=== PATIENT | male | born 1985 | race African-American/Black ===

== ENCOUNTER 2016-12-30 22:13 | Emergency (ER) | payer BC ==
[~2016-12-30 22:13] MED LIST: ABAC1TAB3 PO; NAPR500 PO; NORC7.5T PO
[2016-12-30 22:15] VITALS: BP 156/86; PULSE 63; RESP 16; TEMP 98.7; O2SAT 98
[2016-12-30] MEDS ORDERED: ABAC1TAB3 PO (22:40)
[2016-12-30] MEDS ORDERED: BACT800T5 PO (22:50)
--- NOTE | 2016-12-30 22:53 | PD ---
HPI Chief Complaint: Cold / Flu Symptoms Time Seen by Provider: 22:51 Travel History International Travel<30 days: No Contact w/Intl Traveler<30days: No Traveled to known affect area: No History of Present Illness HPI 31-year-old black male with a history of HIV and neurofibromatosis presents to emergency department with cold symptoms of 2 day duration. He has had runny nose, cough, congestion, headache and general malaise. He denies any nausea vomiting. No abdominal pain or diarrhea. No dysuria or frequency. No rashes or additional lesions. He has normally fibromas. Patient states that he has been compliant with his antivirals. [facility] Past Medical History Narrative Medical Neurofibromatosis, HIV (undetectable viral load unknown CD4 count) Blood Disorders: No Cancer: No Cardiovascular Problems: No Diminished Hearing: No Endocrine: No Genitourinary: No Immune Disorder: Yes (HIV +) Implanted Vascular Access Dvce: No Musculoskeletal: No Neurologic: No Psychiatric: No Reproductive: Yes (SYPHILIS 08/25) Respiratory: No Immunizations Current: Yes Tetanus Vaccination: < 5 Years Past Surgical History Neurologic Surgery: Yes (REMOVAL OF NEUROFIBROSIS IN LOWER BACK APPROX 08/31) Other Surgery: Yes (REMOVAL OF PERIRECTAL ABCESS 12/07/13) Social History Alcohol Use: Yes (socially) Tobacco Use: No Substance Use: No Allergies-Medications (Allergen,Severity, Reaction): Coded Allergies: No Known Allergies (Verified , 12/30/16) Reported Meds & Prescriptions Reported Meds & Active Scripts Active Bactrim DS (Sulfamethoxazole-Trimethoprim) 800-160 Mg Tab 1 Tab PO BID Reported Triumeq (Tkxygris-Pmhrefpxgoth-Spwrubmctu) 600-50-300 Mg Tab 1 Tab PO DAILY Hazardous agent; use appropriate precautions for handling & disposal. Review of Systems Except as stated in HPI: all other systems reviewed are Neg Physical Exam Narrative GENERAL: Well-developed, well-nourished in no acute distress. Nontoxic appearing. HEAD: Normocephalic, atraumatic. EYES: Pupils equal round and reactive. Extraocular motions intact. No scleral icterus. No injection or drainage. ENT: TMs clear without erythema. The external auditory canals clear. Nose: clear . Posterior pharynx is pink and moist. No tonsillar edema or exudate. Uvula midline. Airway patent. NECK: Trachea midline.Supple, nontender, moves head freely. No central bony tenderness or spasm. CARDIOVASCULAR: Regular rate and rhythm without murmurs, gallops, or rubs. RESPIRATORY: Clear to auscultation. Breath sounds equal bilaterally. No wheezes , rales, or rhonchi. GASTROINTESTINAL: Abdomen soft, non-tender, nondistended. No hepato-splenomegaly , or palpable masses. No guarding. EXTREMITIES: No clubbing, cyanosis, or edema. No joint tenderness, effusion, or edema noted. BACK: Nontender without deformity or crepitance. No flank tenderness. Data Data Last Documented VS Vital Signs Date Time Temp Pulse Resp B/P Pulse Ox O2 Delivery O2 Flow Rate FiO2 12/30/16 22:15 98.7 63 16 156/86 98 Room Air Orders Sulfamet-Trimeth Ds 800-160 Mg (Bactrim (12/30/16 23:00) MDM Medical Decision Making Medical Screen Exam Complete: Yes Emergency Medical Condition: Yes Medical Record Reviewed: Yes Differential Diagnosis MDM: High Differential diagnoses: Pneumonia, bronchitis, URI, asthma, RAD, legionnaire's disease, SARS, ARDS, influenza, bronchiolitis, RSV,PE,CHF Narrative Course This is URI. Patient will be covered with Bactrim. He is given one Bactrim DS here in the ER. Diagnosis Primary Impression: URI (upper respiratory infection) Qualified Code: J06.9 - Viral upper respiratory tract infection Patient Instructions: General Instructions Additional Instructions: Rest. Increase fluids. Tylenol and Advil. Robitussin-DM. Bactrim DS. Followup with your Dr. in one week. Return to the ER for any problems. Med/Other Pt SpecificInfo: Prescription(s) given Scripts Sulfamethoxazole-Trimethoprim (Bactrim DS)800-160 Mg Tab1 Tab PO BID #14 TAB Prov:Giovanny West MD 12/30/16 Disposition: 01 DISCHARGE HOME Condition: Stable Raymond Black Dec 30, 2016 22:53
[2016-12-30] MEDS ORDERED: SULFAMETHOXAZOLE-TRIMETHOPRIM DS 800-160 MG TAB PO ONE (23:00)
== END 2016-12-30 23:27 | disposition home or self-care (01) ==
LOC: NEPD 22:13
DX: J06.9 Acute upper respiratory infection, unspecified (principal); Z21 Asymptomatic human immunodeficiency virus [HIV] infection status
CPT/HCPCS: 99283

== ENCOUNTER 2017-03-25 08:42 | Emergency (ER) | payer SELFPAY ==
[~2017-03-25] VITALS: Ht 162.6 cm; Wt 80.0 kg
[~2017-03-25 08:42] MED LIST changes: +BACT800T5 PO; -NAPR500 PO; -NORC7.5T PO
[2017-03-25 08:44] VITALS: BP 143/66; PULSE 84; RESP 16; TEMP 98.4; O2SAT 97
--- NOTE | 2017-03-25 10:08 | PD ---
HPI . Rectal pain Chief Complaint: Pain: Acute or Chronic Time Seen by Provider: 09:18 Travel History International Travel<30 days: No Contact w/Intl Traveler<30days: No Traveled to known affect area: No History of Present Illness HPI Patient presents with the chief complaint of rectal pain. He states that he's had myalgias and chills for about 4 days. He developed rectal pain about 2 days ago. He states that his symptoms are getting worse. He states that his rectum feels swollen. He rates the pain 9/10. Pain has been unrelieved by Preparation H. Pain is exacerbated by sitting. He denies any associated fevers. He denies any GI complaints such as nausea, vomiting or diarrhea. He denies constipation. He denies any urinary tract symptoms such as dysuria, frequency or urgency. He denies any cough or difficulty breathing. He denies any upper respiratory symptoms. This patient's history is significant for HIV. He reports compliance with his medications. He reports no history of previous opportunistic infections. [facility] Past Medical History Blood Disorders: No Cancer: No Cardiovascular Problems: No Diminished Hearing: No Endocrine: No Genitourinary: No Immune Disorder: Yes (HIV +) Implanted Vascular Access Dvce: No Musculoskeletal: No Neurologic: No Psychiatric: No Reproductive: Yes (SYPHILIS 08/25) Respiratory: No Immunizations Current: Yes Past Surgical History Neurologic Surgery: Yes (REMOVAL OF NEUROFIBROSIS IN LOWER BACK APPROX 08/31) Other Surgery: Yes (REMOVAL OF PERIRECTAL ABCESS 12/07/13) Social History Alcohol Use: Yes (socially) Tobacco Use: No Substance Use: No Allergies-Medications (Allergen,Severity, Reaction): Coded Allergies: No Known Allergies (Verified , 12/30/16) Reported Meds & Prescriptions Reported Meds & Active Scripts Active Nupercainal Rectal (Dibucaine) 1 % Oin 1 Applic RECTAL DIRECTED PRN Reported Triumeq (Jsmzctay-Wexdojlloisr-Kdooeouiat) 600-50-300 Mg Tab 1 Tab PO DAILY Hazardous agent; use appropriate precautions for handling & disposal. Review of Systems Except as stated in HPI: all other systems reviewed are Neg General / Constitutional: Positive: Chills, No: Fever HENT: No: Headaches, Sore Throat, Rhinorrhea, Congestion, Earache Cardiovascular: No: Chest Pain or Discomfort Respiratory: No: Cough, Shortness of Breath Gastrointestinal: No: Nausea, Vomiting, Diarrhea, Abdominal Pain, Constipation Genitourinary: No: Urgency, Frequency, Dysuria Musculoskeletal: Positive: Myalgias Physical Exam Narrative GENERAL: Awake and alert and in no acute distress. SKIN: warm/dry. Multiple lesions compatible with his history of neurofibromatosis. HEAD: Normocephalic. Atraumatic. EYES: Pupils equal and round. No scleral icterus. No injection or drainage. ENT: No nasal bleeding or discharge. Mucous membranes pink and moist. NECK: Trachea midline. Full range of motion without pain.. CARDIOVASCULAR: Regular rate and rhythm. Heart sounds are normal. RESPIRATORY: No accessory muscle use. Clear to auscultation. Breath sounds equal bilaterally. GASTROINTESTINAL: Abdomen soft. Nontender. Bowel sounds present. Nondistended. RECTAL: No visible external hemorrhoid. Exquisite pain in the anus on digital exam. No excessive stool in the rectal vault. MUSCULOSKELETAL: No obvious deformities. NEUROLOGICAL: Awake and alert. No obvious cranial nerve deficits. Motor grossly within normal limits. Normal speech. PSYCHIATRIC: Appropriate mood and affect; insight and judgment normal. Data Data Last Documented VS Vital Signs Date Time Temp Pulse Resp B/P (MAP) Pulse Ox O2 Delivery O2 Flow Rate FiO2 03/25/17 11:10 80 16 146/69 (94) 98 Room Air 03/25/17 08:44 98.4 Orders Orders Complete Blood Count With Diff (03/25/17 10:09) Lactic Acid Sepsis Protocol (03/25/17 10:09) Blood Culture (03/25/17 10:09) Iv Access Insert/Monitor (03/25/17 10:09) Basic Metabolic Panel (Bmp) (03/25/17 10:09) Morphine Inj (Morphine Inj) (03/25/17 10:15) Ondansetron Inj (Zofran Inj) (03/25/17 10:15) Labs Laboratory Tests Test 03/25/17 10:40 White Blood Count 8.8 TH/MM3 Red Blood Count 5.90 MIL/MM3 Hemoglobin 15.4 GM/DL Hematocrit 46.2 % Mean Corpuscular Volume 78.2 FL Mean Corpuscular Hemoglobin 26.0 PG Mean Corpuscular Hemoglobin Concent 33.3 % Red Cell Distribution Width 13.5 % Platelet Count 210 TH/MM3 Mean Platelet Volume 9.1 FL Neutrophils (%) (Auto) 71.1 % Lymphocytes (%) (Auto) 16.1 % Monocytes (%) (Auto) 11.5 % Eosinophils (%) (Auto) 0.6 % Basophils (%) (Auto) 0.7 % Neutrophils # (Auto) 6.2 TH/MM3 Lymphocytes # (Auto) 1.4 TH/MM3 Monocytes # (Auto) 1.0 TH/MM3 Eosinophils # (Auto) 0.1 TH/MM3 Basophils # (Auto) 0.1 TH/MM3 CBC Comment DIFF FINAL Differential Comment Blood Urea Nitrogen 14 MG/DL Creatinine 1.02 MG/DL Random Glucose 80 MG/DL Calcium Level 8.7 MG/DL Sodium Level 137 MEQ/L Potassium Level 4.0 MEQ/L Chloride Level 102 MEQ/L Carbon Dioxide Level 28.7 MEQ/L Anion Gap 6 MEQ/L Estimat Glomerular Filtration Rate 103 ML/MIN Lactic Acid Level 0.7 mmol/L MDM Medical Decision Making Medical Screen Exam Complete: Yes Emergency Medical Condition: Yes Differential Diagnosis Differential diagnosis of rectal pain includes but is not limited to external hemorrhoid,, rectal foreign body, impaction, anal fissure Narrative Course This patient presents with chief complaint of rectal pain. His anus is tender on digital exam. He most likely has some local trauma or a fissure. He'll be discharged with a prescription for Nupercainal. Because of his complaint of myalgias and chills, I will check a CBC and lactic acid. CBC & BMP Diagram 03/25/17 10:40 Calcium Level 8.7 LA 0.7 The history, exam, diagnostic testing, and current condition do not suggest any significant pathology to warrant further testing, continued ED treatment, admission, or surgical evaluation at this point. No EMC was found. The patient 's condition is stable and appropriate for discharge. Diagnosis Primary Impression: Rectal pain Patient Instructions: General Instructions, Rectal Pain (ED) Additional Instructions: Take a stool softener to avoid constipation. Use the ointment on your anus as needed for pain. Med/Other Pt SpecificInfo: Prescription(s) given Scripts Dibucaine Rectal (Nupercainal Rectal) 1 % Oin 1 APPLIC RECTAL DIRECTED Y for PAIN/ITCHING, #1 TUBE 0 Refills Prov: Christina Dupree MD 03/25/17 Disposition: 01 DISCHARGE HOME Condition: Stable Christina Dupree MD Mar 25, 2017 10:08
[2017-03-25] MEDS ORDERED: ONDANSETRON HCL 4 MG/2 ML VIAL IV PUSH ONE (10:15)
[2017-03-25] MEDS ORDERED: MORPHINE SULFATE 4 MG/ML INJ IV PUSH ONE (10:15)
[2017-03-25 11:08] LABS: AUTOMATED NEUTROPHIL # 6.2 TH/MM3 (1.8-7.7); BASOPHIL # 0.1 TH/MM3 (0-0.2); BASOPHIL % 0.7 % (0.0-2.0); EOSINOPHIL # 0.1 TH/MM3 (0-0.4); EOSINOPHIL % 0.6 % (0.0-4.0); HEMATOCRIT 46.2 % (39.0-51.0); HEMO FLAGS DIFF FINAL; LYMPH % 16.1 % (9.0-44.0); LYMPHOCYTE # 1.4 TH/MM3 (1.0-4.8); MEAN CELL VOLUME 78.2 FL (80.0-100.0); MEAN CORPUSCULAR HGB CONC 33.3 % (32.0-36.0); MONO % 11.5 % (0.0-8.0); NEUT % 71.1 % (16.0-70.0); PLATELET COUNT 210 TH/MM3 (150-450); RED CELL DISTRIBUTION WIDTH 13.5 % (11.6-17.2); WHITE BLOOD COUNT 8.8 TH/MM3 (4.0-11.0)
[2017-03-25 11:10] VITALS: BP 146/69; PULSE 80; RESP 16; O2SAT 98
[2017-03-25 11:19] LABS: BICARBONATE 28.7 MEQ/L (21.0-32.0)
[2017-03-25] MEDS ORDERED: DIBU10OI RECTAL (11:23)
[2017-03-26] MEDS ORDERED: TRAM50TA PO (11:30)
[2017-03-26] MEDS ORDERED: BACT800T5 PO (11:31)
[2017-03-26] MEDS ORDERED: AUGM875T3 PO (11:31)
== END 2017-03-25 11:43 | disposition home or self-care (01) ==
LOC: NEPD 08:42
DX: K62.89 Other specified diseases of anus and rectum (principal); B20 Human immunodeficiency virus [HIV] disease
CPT/HCPCS: 80048; 83605; 85025; 87040; 96374; 96375; 99284; J2270; J2405

== ENCOUNTER 2017-03-26 09:43 | Emergency (ER) | payer SELFPAY ==
[~2017-03-26] VITALS: Ht 162.6 cm; Wt 79.0 kg
[~2017-03-26 09:43] MED LIST changes: -BACT800T5 PO; +DIBU10OI RECTAL
[2017-03-26 09:45] VITALS: BP 159/82; PULSE 87; RESP 16; TEMP 99.1; O2SAT 96
[2017-03-26] MEDS ORDERED: TRAM50TA PO (11:30)
[2017-03-26] MEDS ORDERED: SULFAMETHOXAZOLE-TRIMETHOPRIM DS 800-160 MG TAB PO ONE (11:30)
[2017-03-26] MEDS ORDERED: AMOXICILLIN/CLAVULANATE K 875 MG TAB PO ONE (11:30)
[2017-03-26] MEDS ORDERED: AUGM875T3 PO (11:31)
[2017-03-26] MEDS ORDERED: BACT800T5 PO (11:31)
--- NOTE | 2017-03-26 11:35 | PD ---
HPI Chief Complaint: Skin Problem Time Seen by Provider: 11:20 Travel History International Travel<30 days: No Contact w/Intl Traveler<30days: No Traveled to known affect area: No History of Present Illness HPI This patient was examined in the presence of a nurse. 31-year-old male with history of HIV, on antiretroviral therapy, current undetectable viral load, presents for evaluation of perirectal pain. He reports over the past 3 days he has had pain superior to his rectum. The pain is an aching pain that is worse when sitting. He denies any drainage, denies any pain with bowel movements, denies any objective fevers but he has had occasional chills. he was seen here yesterday and had laboratory testing performed which was unremarkable. The pain persisted which prompted evaluation today. He has no other complaints at this time. PFSH Past Medical History Blood Disorders: No Cancer: No Cardiovascular Problems: No Diminished Hearing: No Endocrine: No Genitourinary: No Immune Disorder: Yes (HIV +) Implanted Vascular Access Dvce: No Musculoskeletal: No Neurologic: No Psychiatric: No Reproductive: Yes (SYPHILIS 08/25) Respiratory: No Immunizations Current: Yes Past Surgical History Neurologic Surgery: Yes (REMOVAL OF NEUROFIBROSIS IN LOWER BACK APPROX 08/31) Other Surgery: Yes (REMOVAL OF PERIRECTAL ABCESS 12/07/13) Social History Alcohol Use: Yes Tobacco Use: Yes Substance Use: No Allergies-Medications (Allergen,Severity, Reaction): Coded Allergies: No Known Allergies (Verified Adverse Reaction, Unknown, 03/26/17) Reported Meds & Prescriptions Reported Meds & Active Scripts Active Augmentin (Amoxicillin-Clavulanate) 875-125 Mg Tab 1 Tab PO BID 10 Days Bactrim DS (Sulfamethoxazole-Trimethoprim) 800-160 Mg Tab 1 Tab PO BID Tramadol (Tramadol HCl) 50 Mg Tab 50 Mg PO Q6H PRN Nupercainal Rectal (Dibucaine) 1 % Oin 1 Applic RECTAL DIRECTED PRN Reported Triumeq (Lbzpdiuk-Hfkqmydnvvus-Eopqillakf) 600-50-300 Mg Tab 1 Tab PO DAILY Hazardous agent; use appropriate precautions for handling & disposal. Review of Systems Except as stated in HPI: all other systems reviewed are Neg Physical Exam Narrative GENERAL: Well-developed well-nourished male in no acute distress SKIN: Warm and dry. At the 1 o'clock position superior to the anus there is a 1 cm area of mild erythema and induration. There is no fluctuance or drainage. HEAD: Atraumatic. Normocephalic. EYES: Pupils equal and round. No scleral icterus. No injection or drainage. ENT: No nasal bleeding or discharge. Mucous membranes pink and moist. NECK: Trachea midline. No JVD. CARDIOVASCULAR: Regular rate and rhythm. No murmur appreciated. RESPIRATORY: No accessory muscle use. Clear to auscultation. Breath sounds equal bilaterally. GASTROINTESTINAL: Abdomen soft, non-tender, nondistended. Hepatic and splenic margins not palpable. MUSCULOSKELETAL: No obvious deformities. No edema. NEUROLOGICAL: Awake and alert. No obvious cranial nerve deficits. Motor grossly within normal limits. Normal speech. Data Data Last Documented VS Vital Signs Date Time Temp Pulse Resp B/P (MAP) Pulse Ox O2 Delivery O2 Flow Rate FiO2 03/26/17 09:45 99.1 87 16 159/82 (107) 96 Room Air Orders Orders Ed Discharge Order (03/26/17 11:29) Sulfamet-Trimeth Ds 800-160 Mg (Bactrim (03/26/17 11:30) Amoxicil-Clavulanate (Augmentin) (03/26/17 11:30) Wound Culture And Gram Stain (03/26/17 11:29) [facility] Medical Decision Making Medical Screen Exam Complete: Yes Emergency Medical Condition: Yes Medical Record Reviewed: Yes Differential Diagnosis Perirectal abscess, cellulitis, anal fissure Narrative Course Examination does reveal a 170 area of mild erythema and induration at the 1 o' clock position near the anus at the level of the patient's pain. There is no fluctuance. The patient is nontoxic in appearance. After obtaining verbal consent, and needle aspiration was performed centrally after the skin was prepped with Betadine. There was a small amount of purulent drainage which was sent for culture. The patient will be discharged with Bactrim and Augmentin, recommended sitz baths. He'll be given tramadol for pain control. He understands to return for any new or worsening symptoms. Diagnosis Primary Impression: Cellulitis and abscess of buttock Additional Instructions: Take the medication as prescribed. Warm bath 20 minutes at a time 2-3 times a day. Follow-up with primary care physician as needed and return for any acutely new or worsening symptoms. Med/Other Pt SpecificInfo: Prescription(s) given Scripts Amoxicillin-Clavulanate (Augmentin) 875-125 Mg Tab 1 TAB PO BID for Infection for 10 Days, #20 TAB 0 Refills Prov: Mundo Talamantes MD 03/26/17 Sulfamethoxazole-Trimethoprim (Bactrim DS) 800-160 Mg Tab 1 TAB PO BID for Infection, #20 TAB 0 Refills Prov: Mundo Talamantes MD 03/26/17 Tramadol (Tramadol) 50 Mg Tab 50 MG PO Q6H Y for PAIN, #15 TAB 0 Refills Prov: Mundo Talamantes MD 03/26/17 Disposition: 01 DISCHARGE HOME Condition: Stable Kevyn Pires Mar 26, 2017 11:35
[2017-03-26] MEDS ORDERED: IBUPROFEN 800 MG TAB PO ONE (12:30)
== END 2017-03-26 12:32 | disposition home or self-care (01) ==
LOC: NEPD 09:43
DX: L03.317 Cellulitis of buttock (principal); L02.31 Cutaneous abscess of buttock; B96.20 Unspecified Escherichia coli [E. coli] as the cause of diseases classified elsewhere; Z21 Asymptomatic human immunodeficiency virus [HIV] infection status; Z72.0 Tobacco use; Z88.8 Allergy status to other drugs, medicaments and biological substances
CPT/HCPCS: 10160; 86403; 87070; 87077; 87186; 87205

== ENCOUNTER 2017-10-23 02:35 | Inpatient (IN) | payer BC ==
[~2017-10-23] VITALS: Ht 167.6 cm; Wt 66.0 kg
[~2017-10-23 02:35] MED LIST changes: +AUGM875T3 PO; +BACT800T5 PO; +TRAM50TA PO
[2017-10-23 02:44] VITALS: BP 156/70; PULSE 96; RESP 20; TEMP 100.7; O2SAT 96
[2017-10-23] MEDS ORDERED: SODIUM CHLOR 0.9% 1000 ML INJ 1,000 ML IV ONE (04:00)
[2017-10-23] MEDS ORDERED: VANCOMYCIN INJ 1,000 MG in SODIUM CHLOR 0.9% 250 ML INJ 250 ML IV ONE (04:00)
[2017-10-23] MEDS ORDERED: PIPERACIL-TAZO 3.375 GM PREMIX 50 ML IV ONE (04:00)
[2017-10-23] MEDS ORDERED: ACETAMINOPHEN 325 MG TAB PO ONE (04:00)
--- NOTE | 2017-10-23 04:02 | PD ---
HPI Chief Complaint: Wound/Suture/Staple Re-Check Time Seen by Provider: 03:42 Travel History International Travel<30 days: No Contact w/Intl Traveler<30days: No Traveled to known affect area: No History of Present Illness HPI The patient is a 32 year old male who presents to the [facility] emergency department with a history of an abscess in his buttock area that began 2 days ago. He has a history of recurrent abscesses in the gluteal fold over the last 6 months. He reports that he has had recurrences of this 5 times. The patient reports that each time he has incision and drainage done and the symptoms resolved. He reports that this time he has generalized body aches, fevers, and chills. The patient has a history of HIV that was first diagnosed in 2004. He is on medication or treatment and recently had a viral load done that was undetectable. He is unsure what his CD4 count is. He is followed by Dr. Chavez for his HIV care. On review of systems otherwise, the patient denies having any recent cough or congestion, headache, neck pain, chest pain, shortness of breath, abdominal pain, vomiting, diarrhea, urinary symptoms, or neurologic symptoms. The patient reports that he last moved his bowels 2 days ago. [facility] Past Medical History Narrative Medical The patient's past medical history is significant for HIV diagnosed in 2004, and neurofibromatosis, history of syphilis in August 2007 Blood Disorders: No Cancer: No Cardiovascular Problems: No Diminished Hearing: No Endocrine: No Genitourinary: No Immune Disorder: Yes (HIV +) Implanted Vascular Access Dvce: No Musculoskeletal: No Neurologic: No Psychiatric: No Reproductive: Yes (SYPHILIS 08/25) Respiratory: No Immunizations Current: Yes Tetanus Vaccination: Unknown Influenza Vaccination: Yes Past Surgical History Narrative Surgical The patient's past surgical history is significant for drainage of a perirectal abscess in November 2013, back surgery related to neurofibromatosis involving his low back in August 2013. Neurologic Surgery: Yes (REMOVAL OF NEUROFIBROSIS IN LOWER BACK APPROX 08/31) Other Surgery: Yes (REMOVAL OF PERIRECTAL ABCESS 12/07/13) Social History Alcohol Use: Yes Tobacco Use: Yes Substance Use: No Allergies-Medications (Allergen,Severity, Reaction): Coded Allergies: No Known Allergies (Verified Adverse Reaction, Unknown, 10/23/17) Reported Meds & Prescriptions Reported Meds & Active Scripts Active Reported Triumeq (Aujmkasg-Bwxcbtuqfwtv-Dktqfdkenp) 600-50-300 Mg Tab 1 Tab PO DAILY Hazardous agent; use appropriate precautions for handling & disposal. Review of Systems Except as stated in HPI: all other systems reviewed are Neg General / Constitutional: Positive: Fever, Chills Eyes: No: Visual changes HENT: No: Headaches Cardiovascular: No: Chest Pain or Discomfort Respiratory: No: Shortness of Breath Gastrointestinal: No: Nausea, Vomiting, Diarrhea, Abdominal Pain Genitourinary: No: Dysuria Musculoskeletal: Positive: Myalgias, Pain Skin: No Rash Neurologic: Positive: Tremor (Tremulousness), No: Weakness, Focal Abnormalities , Change in Mentation, Slurred Speech, Sensory Disturbance Psychiatric: No: Depression Endocrine: No: Polydipsia Hematologic/Lymphatic: No: Easy Bruising Physical Exam Narrative General: The patient is a well-developed well-nourished male, uncomfortable appearing on my arrival to the room, tremulous.. Head and Neck exam: Head is normocephalic atraumatic. Eyes: EOMI, pupils are equal round and reactive to light. Nose: Midline septum with pink mucous membranes Mouth: Dentition unremarkable. Moist mucus membranes. Posterior oropharynx is not erythematous. No tonsillar hypertrophy. Uvula midline. Airway patent. Neck: No palpable lymphadenopathy. No nuchal rigidity. No thyromegaly. Cardiovascular: Sinus tachycardia in the low 100 without murmurs, gallops, or rubs. No pulse deficit to the extremities on simultaneous auscultation and palpation of his radial artery. Lungs: Clear to auscultation bilaterally. No wheezes, rhonchi, or rales. Abdomen: Soft, without tenderness to palpation in all 4 quadrants of the abdomen. No guarding, rebound, or rigidity. Normal bowel sounds are audible. No tenderness on palpation of McBurney's point. Extremities: No clubbing, cyanosis, or edema. 2+ pulses in all 4 extremities. No calf tenderness on palpation. Back: No spinous process tenderness to palpation. No costovertebral angle tenderness to palpation. On examination of the buttock area in the gluteal fold the patient is noted to have a copious amount of yellow bloody drainage noted to be oozing from the wound in the medial aspect of the right buttock along the gluteal fold. The drainage was cultured. Further drainage was able to be expressed and 4 x 4's were placed in the area for continued drainage. He has surrounding erythema, tenderness on palpation along the medial aspect of the right buttock. Neurologic Exam: Grossly nonfocal. Skin Exam: The patient has multiple skin nodules noted related to his history of neurofibromatosis. Intact skin that is warm and dry. Data Data Last Documented VS Vital Signs Date Time Temp Pulse Resp B/P (MAP) Pulse Ox O2 Delivery O2 Flow Rate FiO2 10/23/17 02:44 100.7 96 20 156/70 (98) 96 Orders Orders Complete Blood Count With Diff (10/23/17 03:44) Comprehensive Metabolic Panel (10/23/17 03:44) Prothrombin Time / Inr (Pt) (10/23/17 03:44) Act Partial Throm Time (Ptt) (10/23/17 03:44) Blood Culture (10/23/17 03:44) C-Reactive Protein (Crp) (10/23/17 03:44) Lipase (10/23/17 03:44) Urinalysis - C+S If Indicated (10/23/17 03:44) Magnesium (Mg) (10/23/17 03:44) Iv Access Insert/Monitor (10/23/17 03:44) Ecg Monitoring (10/23/17 03:44) Oximetry (10/23/17 03:44) Lactic Acid Sepsis Protocol (10/23/17 03:44) Sodium Chlor 0.9% 1000 Ml Inj (Ns 1000 M (10/23/17 04:00) Piperacil-Tazo 3.375 Gm Premix (Zosyn 3. (10/23/17 04:00) Vancomycin Inj (Vancomycin Inj) (10/23/17 04:00) Acetaminophen (Tylenol) (10/23/17 04:00) Wound Culture And Gram Stain (10/23/17 04:25) Admit Order (Ed Use Only) (10/23/17 05:31) Piperacil-Tazo 3.375 Gm Premix (Zosyn 3. (10/23/17 10:00) Vancomycin Consult Pharmacy (Vancomycin (10/23/17 05:30) Consult General Surgery (10/23/17 ) Admit To Inpatient (10/23/17 ) Vital Signs (Adult) Q4H (10/23/17 05:29) Activity Oob Ad Johana (10/23/17 05:29) Rn Review / Telemetry .CONTINUOUS (10/23/17 05:29) Intake + Output RADHA.QSHIFT (10/23/17 05:29) Diet Npo (10/23/17 Breakfast) Sodium Chlor 0.9% 1000 Ml Inj (Ns 1000 M (10/23/17 06:00) Sodium Chloride 0.9% Flush (Ns Flush) (10/23/17 05:30) Sodium Chloride 0.9% Flush (Ns Flush) (10/23/17 09:00) Acetaminophen (Tylenol) (10/23/17 05:30) Basic Metabolic Panel (Bmp) (10/24/17 06:00) Complete Blood Count With Diff (10/24/17 06:00) Scd Bilateral/Knee High RADHA.BID (10/23/17 05:29) Naloxone Inj (Narcan Inj) (10/23/17 05:30) Inpatient Certification (10/23/17 ) Labs Laboratory Tests Test 10/23/17 04:05 10/23/17 04:08 White Blood Count 17.8 TH/MM3 Red Blood Count 6.04 MIL/MM3 Hemoglobin 15.3 GM/DL Hematocrit 47.0 % Mean Corpuscular Volume 77.9 FL Mean Corpuscular Hemoglobin 25.3 PG Mean Corpuscular Hemoglobin Concent 32.5 % Red Cell Distribution Width 15.0 % Platelet Count 222 TH/MM3 Mean Platelet Volume 8.7 FL Neutrophils (%) (Auto) 81.4 % Lymphocytes (%) (Auto) 8.1 % Monocytes (%) (Auto) 9.4 % Eosinophils (%) (Auto) 0.5 % Basophils (%) (Auto) 0.6 % Neutrophils # (Auto) 14.5 TH/MM3 Lymphocytes # (Auto) 1.4 TH/MM3 Monocytes # (Auto) 1.7 TH/MM3 Eosinophils # (Auto) 0.1 TH/MM3 Basophils # (Auto) 0.1 TH/MM3 CBC Comment AUTO DIFF Differential Comment AUTO DIFF CONFIRMED Prothrombin Time 10.8 SEC Prothromb Time International Ratio 1.1 RATIO Activated Partial Thromboplast Time 27.6 SEC Blood Urea Nitrogen 14 MG/DL Creatinine 1.26 MG/DL Random Glucose 99 MG/DL Total Protein 8.5 GM/DL Albumin 3.6 GM/DL Calcium Level 9.2 MG/DL Magnesium Level 2.0 MG/DL Alkaline Phosphatase 68 U/L Aspartate Amino Transf (AST/SGOT) 13 U/L Alanine Aminotransferase (ALT/SGPT) 26 U/L Total Bilirubin 1.3 MG/DL Sodium Level 137 MEQ/L Potassium Level 4.0 MEQ/L Chloride Level 104 MEQ/L Carbon Dioxide Level 25.6 MEQ/L Anion Gap 7 MEQ/L Estimat Glomerular Filtration Rate 80 ML/MIN C-Reactive Protein 13.40 MG/DL Lipase 95 U/L Lactic Acid Level 0.8 mmol/L [facility] Medical Decision Making Medical Screen Exam Complete: Yes Emergency Medical Condition: Yes Medical Record Reviewed: Yes Differential Diagnosis Cellulitis, versus cellulitis with draining abscess, versus pilonidal infected cyst, versus sepsis Narrative Course During the course of the patient's emergency department visit, the patient's history, examination, and differential diagnosis were reviewed with the patient. The patient was placed on a hydraulic lift operator with oximetry and frequent blood pressure monitoring. The patient had IV access obtained and blood work sent for analysis. The patient meets sirs criteria. Blood cultures x2 were sent. A lactic acid was ordered. Wound culture was sent to the patient's drainage from the left buttock. The patient was initially provided Zosyn 3.375 g IV, vancomycin 1 g IV. The patient started on normal saline 1 L IV fluid bolus, Tylenol 650 p.o. 1 was administered for fever. The patient's laboratory studies were reviewed and remarkable for a white count of 17.8, hemoglobin 15.3, platelets 222 with neutrophils 81.4, CMP is remarkable for GFR of 80, total bilirubin 1.3, AST 26, magnesium is 2, C- reactive protein is elevated at 13.4, lipase 95, lactic acid is 0.8, PT 10.8, PTT 27.6 The patient will be admitted to the hospital for continued treatment with IV antibiotic. The patient's results were discussed with the patient, including the plan of care. I explained that further testing and/ or monitoring is indicated based on the patient's history, examination, and/ or laboratory findings. Therefore, I recommended admission for additional evaluation. The patient expressed understanding and was agreeable with this plan. The patient was admitted to the hospital in guarded condition and sent to a bed under the care of the [facility] service. Sepsis Criteria SIRS Criteria (2 or more): Heart rate over 90, WBC > 33434, < 4000 or > 10% bands Sepsis Criteria (SIRS+source): Infect source susp/known Criteria Outcome: Meets SIRS criteria, Meets sepsis criteria Physician Communication Physician Communication The patient's case including history, pertinent physical examination findings, and laboratory studies were discussed with Dr. Franco. It was agreed that the patient would be admitted to the [facility] service. Diagnosis Primary Impression: Cellulitis and abscess of buttock Additional Impression: SIRS (systemic inflammatory response syndrome) Admitting Information Admitting Physician Requests: Admit Marli Martino MD Oct 23, 2017 04:02
[2017-10-23 04:19] LABS: AUTOMATED NEUTROPHIL # 14.5 TH/MM3 (1.8-7.7); BASOPHIL # 0.1 TH/MM3 (0-0.2); BASOPHIL % 0.6 % (0.0-2.0); EOSINOPHIL # 0.1 TH/MM3 (0-0.4); EOSINOPHIL % 0.5 % (0.0-4.0); HEMOGLOBIN 15.3 GM/DL (13.0-17.0); LYMPH % 8.1 % (9.0-44.0); LYMPHOCYTE # 1.4 TH/MM3 (1.0-4.8); MEAN CELL VOLUME 77.9 FL (80.0-100.0); MEAN CORPUSCULAR HEMOGLOBIN 25.3 PG (27.0-34.0); MEAN CORPUSCULAR HGB CONC 32.5 % (32.0-36.0); MEAN PLATELET VOLUME 8.7 FL (7.0-11.0); MONO % 9.4 % (0.0-8.0); MONOCYTE # 1.7 TH/MM3 (0-0.9); NEUT % 81.4 % (16.0-70.0); PLATELET COUNT 222 TH/MM3 (150-450); RED BLOOD COUNT 6.04 MIL/MM3 (4.50-5.90); WHITE BLOOD COUNT 17.8 TH/MM3 (4.0-11.0)
[2017-10-23 04:31] LABS: INTERNATIONAL NORMALIZED RATIO 1.1 RATIO; PROTHROMBIN TIME - PATIENT 10.8 SEC (9.8-11.6)
[2017-10-23 04:34] LABS: ALBUMIN 3.6 GM/DL (3.4-5.0); ALT (GPT) 26 U/L (12-78); AST (GOT) 13 U/L (15-37); BICARBONATE 25.6 MEQ/L (21.0-32.0); BLOOD UREA NITROGEN 14 MG/DL (7-18); CALCIUM 9.2 MG/DL (8.5-10.1); CHLORIDE 104 MEQ/L (98-107); CREATININE 1.26 MG/DL (0.60-1.30); GLOMERULAR FILTRATION RATE 80 ML/MIN (>89); GLUCOSE,RANDOM 99 MG/DL (74-106); SODIUM (NA) 137 MEQ/L (136-145)
[2017-10-23 04:36] LABS: ALKALINE PHOSPHATASE 68 U/L (45-117); TOTAL BILIRUBIN ADULT 1.3 MG/DL (0.2-1.0); TOTAL PROTEIN 8.5 GM/DL (6.4-8.2)
[2017-10-23] MEDS ORDERED: SODIUM CHLORIDE 0.9% FLUSH 10 ML FLUSH IV FLUSH PRN ×2 (05:30→12:45)
[2017-10-23] MEDS ORDERED: Vancomycin Consult Pharmacy 1 EA OTHER SCH (05:30)
[2017-10-23] MEDS ORDERED: ACETAMINOPHEN 325 MG TAB PO PRN (05:30)
[2017-10-23] MEDS ORDERED: NALOXONE HCL 0.4 MG/ML AMP IV PUSH PRN (05:30)
[2017-10-23 07:20] VITALS: BP 122/77; PULSE 79; RESP 16; TEMP 99; O2SAT 99
[2017-10-23] MEDS: SODIUM CHLORIDE 0.9% FLUSH 10 ML FLUSH IV FLUSH SCH ×2 (07:22→19:28)
[2017-10-23] MEDS: SODIUM CHLOR 0.9% 1000 ML INJ 1,000 ML IV SCH ×3 (07:22→22:24)
[2017-10-23 09:16] LABS: BILIRUBIN, URINE NEG (NEG); BLOOD, URINE NEG (NEG); GLUCOSE,URINE NEG (NEG); KETONE, URINE TRACE mg/dL (NEG); MUCUS URINE FEW /lpf (OCC); NITRITE,URINE NEG (NEG); URINE COLOR YELLOW (YELLW/STRAW); URINE LEUKOCYTE ESTERASE NEG (NEG)
[2017-10-23] MEDS: PIPERACIL-TAZO 3.375 GM PREMIX 50 ML IV SCH ×3 (09:51→22:27)
[2017-10-23 09:54] VITALS: BP 118/77; PULSE 81; RESP 16; TEMP 98.3; O2SAT 99
[2017-10-23 10:14] VITALS: BP 134/65; PULSE 65; RESP 16; TEMP 98.5; O2SAT 96
[2017-10-23] MEDS ORDERED: ONDANSETRON HCL 4 MG/2 ML VIAL IV ONE (12:00)
[2017-10-23] MEDS ORDERED: NEOSTIGMINE 5 MG/5 ML SYRINGE IV PUSH ONE (12:00)
[2017-10-23] MEDS ORDERED: LIDOCAINE HCL 1% PF 5 ML SYRINGE OTHER ONE (12:00)
[2017-10-23] MEDS ORDERED: PROPOFOL 200 MG/20 ML AMP IV ONE (12:00)
[2017-10-23] MEDS ORDERED: GLYCOPYRROLATE 1 MG/5 ML SYRINGE IV PUSH ONE (12:00)
[2017-10-23] MEDS ORDERED: ROCURONIUM INJ 100 MG/10 ML VIAL IV ONE (12:00)
[2017-10-23] MEDS ORDERED: MORPHINE SULFATE 4 MG/ML INJ IV PUSH PRN (12:45)
--- NOTE | 2017-10-23 13:09 | MB ---
cc: Eric Pratt MD,Za Wayne MD DATE: 10/23/2017 HISTORY OF PRESENT ILLNESS: This is a 32-year-old, HIV patient who was treated for a perirectal abscess in 2013. The abscess was in the deep postanal space with an extension into the left ischiorectal space as a horseshoe and also extension into the supralevator space in the posterior position. There was no fistula identified at that time and the abscess was drained and the patient recovered well. He has not been seen for over a year. The patient states in the last several months he has been having recurrent episodes of swelling in the perianal area. He has been discharging some pus and blood. He denies fevers; however, abdominal pain. He is moving his bowels well. PAST MEDICAL HISTORY: The patient does have HIV disease. He states that his viral load is negative. He is not certain of his T-cell counts. He is on medication. PHYSICAL EXAMINATION: GENERAL: He is alert, without distress. VITAL SIGNS: Normal. LUNGS: His respirations are normal. SKIN: Warm and dry. ABDOMEN: Soft, nontender, without mass. RECTAL EXAM: Examination of the perianal area reveals an abscess in the posterior midline adjacent to the anal canal. Digital exam of the anus does not identify any supralevator component or any horseshoe component. There is some fibrosis palpable in the posterior midline of the anal canal. NEUROLOGIC: Grossly normal. LABORATORIES: Show an elevated white cell count. 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 PLAN: Recommend drainage of abscess with likely fistulotomy. The risks and benefits were discussed. MD KIMBERLEE Murdock/ALBER , 12:47 PM , 01:08 PM
--- NOTE | 2017-10-23 13:50 | HHI.HP ---
[facility] [place] Admission Diagnosis Buttock abscess with Cellulitis, SIRS Diagnoses: Chief Complaint: Right perianal abscess Travel History International Travel<30 Days: No Contact w/Intl Traveler <30 Da: No Traveled to Known Affected Are: No History of Present Illness 32 years old -[place] male with history of HIV, syphilis, cutaneous fibromas, and multiple perianal abscess. Presented to the ED today complaining of a new abscess in the right buttock area started 2 days ago and with fever or chills, very painful, and generalized body ache patient reported having 5 abscess for started 6 months ago he follow with Dr. Saravia. Patient was diagnosed with HIV in 2004 he is on medication and recently he had the test done which was a viral load undetectable he is unsure of the CD4 counts. Patient follow with Dr. Chavez at the HIV clinic. Patient denies any otherwise symptoms. Dr. Saravia just saw the patient planning on I&D Review of Systems All systems reviewed and was positive for what is mentioned in history of present illness otherwise negative Past Family Social History Past Medical History Syphilis diagnosed 2007 HIV diagnosed 2004 Past Surgical History The patient's past surgical history is significant for drainage of a perirectal abscess in November 2013, back surgery related to neurofibromatosis involving his low back in August 2013. Neurologic Surgery: Yes (REMOVAL OF NEUROFIBROSIS IN LOWER BACK APPROX 08/31) Other Surgery: Yes (REMOVAL OF PERIRECTAL ABCESS 12/07/13) Allergies: Coded Allergies: No Known Allergies (Verified Adverse Reaction, Unknown, 10/23/17) Family History Review with the patient,not aware of significant medical history related to her problem runs in the family Social History Patient smoke 1 pack per week Occasional alcohol no illicit drugs Physical Exam Vital Signs Vital Signs Date Time Temp Pulse Resp B/P (MAP) Pulse Ox O2 Delivery O2 Flow Rate FiO2 10/23/17 10:14 98.5 65 16 134/65 (88) 96 10/23/17 09:54 98.3 81 16 118/77 (91) 99 Room Air 10/23/17 07:20 79 16 10/23/17 07:20 99.0 79 16 122/77 (92) 99 Room Air 10/23/17 02:44 100.7 96 20 156/70 (98) 96 Physical Exam GENERAL: This is a well-nourished, well-developed patient, in no apparent distress. SKIN: Multiple neurofibromas on the neck arms chest which is rubbery and movable HEAD: Atraumatic. Normocephalic. No temporal or scalp tenderness. EYES: Pupils equal round and reactive. Extraocular motions intact. No scleral icterus. No injection or drainage. ENT: Nose without bleeding, purulent drainage or septal hematoma. Throat without erythema, tonsillar hypertrophy or exudate. Uvula midline. Airway patent. NECK: Trachea midline. No JVD or lymphadenopathy. Supple, nontender, no meningeal signs. CARDIOVASCULAR: Regular rate and rhythm without murmurs, gallops, or rubs. RESPIRATORY: Clear to auscultation. Breath sounds equal bilaterally. No wheezes , rales, or rhonchi. GASTROINTESTINAL: Abdomen soft, non-tender, nondistended. No hepato-splenomegaly , or palpable masses. No guarding. MUSCULOSKELETAL: Extremities without clubbing, cyanosis, or edema. No joint tenderness, effusion, or edema noted. No calf tenderness. Negative Homans sign bilaterally. NEUROLOGICAL: Awake and alert. Cranial nerves II through XII intact. Motor and sensory grossly within normal limits. Five out of 5 muscle strength in all muscle groups. Normal speech. /renal: +2 cm abscess perianal 3:00 Laboratory Laboratory Tests Test 10/23/17 04:05 10/23/17 04:08 10/23/17 08:38 White Blood Count 17.8 Red Blood Count 6.04 Hemoglobin 15.3 Hematocrit 47.0 Mean Corpuscular Volume 77.9 Mean Corpuscular Hemoglobin 25.3 Mean Corpuscular Hemoglobin Concent 32.5 Red Cell Distribution Width 15.0 Platelet Count 222 Mean Platelet Volume 8.7 Neutrophils (%) (Auto) 81.4 Lymphocytes (%) (Auto) 8.1 Monocytes (%) (Auto) 9.4 Eosinophils (%) (Auto) 0.5 Basophils (%) (Auto) 0.6 Neutrophils # (Auto) 14.5 Lymphocytes # (Auto) 1.4 Monocytes # (Auto) 1.7 Eosinophils # (Auto) 0.1 Basophils # (Auto) 0.1 CBC Comment AUTO DIFF Differential Comment AUTO DIFF CONFIRMED Prothrombin Time 10.8 Prothromb Time International Ratio 1.1 Activated Partial Thromboplast Time 27.6 Blood Urea Nitrogen 14 Creatinine 1.26 Random Glucose 99 Total Protein 8.5 Albumin 3.6 Calcium Level 9.2 Magnesium Level 2.0 Alkaline Phosphatase 68 Aspartate Amino Transf (AST/SGOT) 13 Alanine Aminotransferase (ALT/SGPT) 26 Total Bilirubin 1.3 Sodium Level 137 Potassium Level 4.0 Chloride Level 104 Carbon Dioxide Level 25.6 Anion Gap 7 Estimat Glomerular Filtration Rate 80 C-Reactive Protein 13.40 Lipase 95 Lactic Acid Level 0.8 Urine Color YELLOW Urine Turbidity CLEAR Urine pH 6.0 Urine Specific Aurelia 1.024 Urine Protein TRACE Urine Glucose (UA) NEG Urine Ketones TRACE Urine Occult Blood NEG Urine Nitrite NEG Urine Bilirubin NEG Urine Urobilinogen 2.0 Urine Leukocyte Esterase NEG Urine WBC 2 Urine Mucus FEW Microscopic Urinalysis Comment CULT NOT INDICATED Date/Time Source Procedure Growth Status 10/23/17 04:05 Blood Peripheral Aerobic Blood Culture Pending Received 10/23/17 04:05 Blood Peripheral Anaerobic Blood Culture Pending Received 10/23/17 04:30 Wound Buttock Gram Stain - Final Resulted 10/23/17 04:30 Wound Buttock Wound Culture Pending Resulted Result Diagram: 10/23/17 0405 10/23/17 0405 Caprini VTE Risk Assessment Caprini VTE Risk Assessment: No/Low Risk (score <= 1) Caprini Risk Assessment Model Point Value = 1 Point Value = 2 Point Value = 3 Point Value = 5 Age 41-60 Minor surgery BMI > 25 kg/m2 Swollen legs Varicose veins or History of unexplained or recurrent spontaneous Oral contraceptives or hormone replacement Sepsis (< 1 month) Serious lung disease, including pneumonia (< 1 month) Abnormal pulmonary function Acute myocardial infarction Congestive heart failure (< 1 month) History of inflammatory bowel disease Medical patient at bed rest Age 61-74 Arthroscopic surgery Major open surgery (> 45 min) Laparoscopic surgery (> 45 min) Malignancy Confined to bed (> 72 hours) Immobilizing plaster cast Central venous access Age >= 75 History of VTE Family history of VTE Factor V Leiden Prothrombin [id number] Lupus anticoagulant Anticardiolipin antibodies Elevated serum homocysteine Heparin-induced thrombocytopenia Other congenital or acquired thrombophilia Stroke (< 1 month) Elective arthroplasty Hip, pelvis, or leg fracture Acute spinal cord injury (< 1 month) Prophylaxis Regimen Total Risk Factor Score Risk Level Prophylaxis Regimen 0-1 Low Early ambulation 2 Moderate Order ONE of the following: *Sequential Compression Device (SCD) *Heparin 5000 units SQ BID 3-4 Higher Order ONE of the following medications: *Heparin 5000 units SQ TID *Enoxaparin/Lovenox 40 mg SQ daily (WT < 150 kg, CrCl > 30 mL/min) *Enoxaparin/Lovenox 30 mg SQ daily (WT < 150 kg, CrCl > 10-29 mL/min) *Enoxaparin/Lovenox 30 mg SQ BID (WT < 150 kg, CrCl > 30 mL/min) AND/OR *Sequential Compression Device (SCD) 5 or more Highest Order ONE of the following medications: *Heparin 5000 units SQ TID (Preferred with Epidurals) *Enoxaparin/Lovenox 40 mg SQ daily (WT < 150 kg, CrCl > 30 mL/min) *Enoxaparin/Lovenox 30 mg SQ daily (WT < 150 kg, CrCl > 10-29 mL/min) *Enoxaparin/Lovenox 30 mg SQ BID (WT < 150 kg, CrCl > 30 mL/min) AND *Sequential Compression Device (SCD) Assessment and Plan Assessment and Plan 32 years old male with history of HIV and syphilis and multiple perianal abscess presented with Fifth time perianal abscess with fever chills: Initially general surgery consulted they recommended colorectal surgeon I discussed with her carpenter's assistant Dr. Pratt colorectal surgeon assess the patient mostly going for I&D Leukocytosis with WBC 17 K 85% bandemia Initially started on Zosyn and Dr. Santa Sellers at the ceftezole and prior to surgery Monitor CBC DVT prophylaxis with ambulation Consult nurse case manager Discussed Condition With ED physician patient Kelly Ruiz MD Oct 23, 2017 13:50
[2017-10-23 13:51] VITALS: BP 131/67; PULSE 72; RESP 16; TEMP 98.2; O2SAT 98
[2017-10-23] MEDS: ceFAZolin 2 GM PREMIX 50 ML IV SCH ×2 (15:13→22:26)
[2017-10-23] MEDS ORDERED: LIDOCAINE HCL 0.5% PF 50 ML VIAL ONE (15:44)
[2017-10-23] MEDS ORDERED: LIDOCAINE 0.5%/EPINEPHrine 1:200,000 SOLN 50 ML VIAL ONE (15:44)
[2017-10-23] MEDS: LACTATED RINGER'S 1000 ML INJ 1,000 ML IV SCH ×2 (15:57→23:22)
[2017-10-23] MEDS: VANCOMYCIN INJ 750 MG in SODIUM CHLOR 0.9% 250 ML INJ 250 ML IV SCH (16:15)
[2017-10-23] MEDS ORDERED: DO NOT ADM ANY ANTICOAGULANT DRUGS PRN (18:10)
[2017-10-23] MEDS ORDERED: MIDAZOLAM HCL 2 MG/2 ML VIAL ONE (18:15)
--- NOTE | 2017-10-23 18:15 | MR ---
cc: Eric Pratt MD,Eric Chavez,Za Wayne MD DATE: 10/23/2017 PREOPERATIVE DIAGNOSIS: Recurrent deep postanal space abscess with suspected fistula. 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 PROCEDURE PERFORMED: Incision and drainage of abscess with fistulotomy. MOTIVATIONAL SPEAKER: Eric Pratt MD. ANESTHESIA: General. INDICATIONS FOR PROCEDURE: This is a 32-year-old who had a deep postanal space abscess drained in 2013. There was a left thanh-horseshoe at that time. The patient initially recovered well, but within the last year he has had several episodes of recurrent pain and swelling in the posterior perianal area. He presented to the emergency room with increased pain and drainage from the perianal skin. The patient was examined and felt to have a recurrent deep postanal space abscess with likely fistula. OPERATIVE TECHNIQUE: The perineum was prepped and draped in a sterile fashion in the prone position on the operating table after induction of general anesthesia. Anal area was examined and there was a draining opening in the posterior midline approximately 2.5 cm from the anal verge. This ended a chronic abscess cavity with thick castillo. Palpation of the anal canal revealed fibrosis in the posterior midline between the anal verge and the dentate line. There was chronic fibrosis in the right posterior and left posterior regions. In addition, there was an old supralevator extension. Fistula probe was inserted both through the external wound and through the anus. The actual fistula opening could not be identified, but it was suspected due to the fibrosis that was present. With the bivalve retractor in place, the skin over the external opening was incised and incision was carried into the anal canal, dividing the muscle to the level of the dentate line through the area of fibrosis. This was felt to eradicate the fistula. Redundant tissues were excised and the wound was further examined and probed. There were some short extensions of the wound and of the chronic abscess cavity in the posterior, left lateral and right lateral directions. These areas were opened over the probe and tissues were excised to unroof these areas. The wound was curetted and felt to be unroofed completely. Hemostasis was obtained. 20 mL of 1% Xylocaine with epinephrine was injected locally. Wound was packed with Betadine soaked gauze. The patient tolerated the procedure well. The low rectal mucosa appeared normal through the anoscope. MD KIESHA Murdock , 05:54 PM , 06:13 PM
[2017-10-23] MEDS: oxyCODONE/ACETAMINOPHEN 7.5 MG/325 MG TAB PO PRN (19:26)
[2017-10-23 20:00] VITALS: BP 141/88; PULSE 63; PULSE 92; RESP 16; TEMP 98; O2SAT 99
[2017-10-23] MEDS ORDERED: SODIUM CHLORIDE 0.9% FLUSH 10 ML FLUSH IV FLUSH SCH (21:00)
[2017-10-23] MEDS ORDERED: diphenhydrAMINE HCL 25 MG CAP PO ONE (22:15)
[2017-10-24] VITALS: PULSE 63
[2017-10-24 00:22] VITALS: BP 138/79; PULSE 61; RESP 17; TEMP 97.6; O2SAT 99
[2017-10-24 04:00] VITALS: BP 122/88; PULSE 61; PULSE 68; RESP 16; TEMP 98.1; O2SAT 99
[2017-10-24] MEDS: VANCOMYCIN INJ 750 MG in SODIUM CHLOR 0.9% 250 ML INJ 250 ML IV SCH (05:11)
[2017-10-24] MEDS: ceFAZolin 2 GM PREMIX 50 ML IV SCH (05:11)
[2017-10-24] MEDS: PIPERACIL-TAZO 3.375 GM PREMIX 50 ML IV SCH ×2 (05:11→12:06)
[2017-10-24] MEDS: oxyCODONE/ACETAMINOPHEN 7.5 MG/325 MG TAB PO PRN ×2 (06:14→17:14)
[2017-10-24 07:21] LABS: AUTOMATED NEUTROPHIL # 5.4 TH/MM3 (1.8-7.7); BASOPHIL # 0.1 TH/MM3 (0-0.2); BASOPHIL % 0.7 % (0.0-2.0); EOSINOPHIL # 0.3 TH/MM3 (0-0.4); EOSINOPHIL % 3.1 % (0.0-4.0); HEMATOCRIT 41.1 % (39.0-51.0); HEMOGLOBIN 13.5 GM/DL (13.0-17.0); LYMPH % 20.5 % (9.0-44.0); LYMPHOCYTE # 1.7 TH/MM3 (1.0-4.8); MEAN CELL VOLUME 78.5 FL (80.0-100.0); MEAN CORPUSCULAR HEMOGLOBIN 25.8 PG (27.0-34.0); MEAN CORPUSCULAR HGB CONC 32.9 % (32.0-36.0); MEAN PLATELET VOLUME 9.1 FL (7.0-11.0); MONO % 9.4 % (0.0-8.0); MONOCYTE # 0.8 TH/MM3 (0-0.9); NEUT % 66.3 % (16.0-70.0); PLATELET COUNT 181 TH/MM3 (150-450); RED BLOOD COUNT 5.23 MIL/MM3 (4.50-5.90); RED CELL DISTRIBUTION WIDTH 15.3 % (11.6-17.2); WHITE BLOOD COUNT 8.1 TH/MM3 (4.0-11.0)
[2017-10-24 07:44] LABS: CALCIUM 8.6 MG/DL (8.5-10.1); CREATININE 1.04 MG/DL (0.60-1.30)
[2017-10-24 08:00] VITALS: PULSE 72
[2017-10-24 08:19] VITALS: BP 136/88; PULSE 66; RESP 18; TEMP 96.9; O2SAT 97
[2017-10-24] MEDS ORDERED: diphenhydrAMINE HCL 25 MG CAP PO PRN (11:30)
[2017-10-24] MEDS: SODIUM CHLOR 0.9% 1000 ML INJ 1,000 ML IV SCH (12:06)
[2017-10-24] MEDS: SODIUM CHLORIDE 0.9% FLUSH 10 ML FLUSH IV FLUSH SCH (12:06)
[2017-10-24 13:00] VITALS: BP 130/88; PULSE 80; RESP 18; TEMP 97.7; O2SAT 96
--- NOTE | 2017-10-24 13:57 | HHI.PR ---
Subjective Remarks Follow-up for perianal abscess status post I&D. Patient is currently doing well. No chest pain, shortness of breath, fever or chills. Objective Vitals Vital Signs Date Time Temp Pulse Resp B/P (MAP) Pulse Ox O2 Delivery O2 Flow Rate FiO2 10/24/17 08:19 96.9 66 18 136/88 (104) 97 10/24/17 04:00 98.1 68 16 122/88 (99) 99 10/24/17 04:00 61 10/24/17 00:22 97.6 61 17 138/79 (98) 99 10/24/17 00:00 63 10/23/17 20:00 63 10/23/17 20:00 98.0 92 16 141/88 (105) 99 10/23/17 18:30 98.0 69 14 137/69 (91) 99 Room Air 10/23/17 18:11 75 12 128/65 (86) 100 Room Air 10/23/17 18:09 98.0 76 12 122/72 (89) 99 Room Air 10/23/17 13:51 98.2 72 16 131/67 (88) 98 I/O 10/23/17 10/23/17 10/23/17 10/24/17 10/24/17 10/24/17 06:59 14:59 22:59 06:59 14:59 22:59 Intake Total 1300 ml 50 ml 700 ml 480 ml Output Total 600 ml 5 ml Balance 1300 ml -550 ml 695 ml 480 ml Intake Oral 480 ml IV Total 1300 ml 50 ml 700 ml Output Urine Total 600 ml Estimated Blood Loss 5 ml # Voids 1 1 # Bowel Movements 0 Result Diagram: 10/24/17 0523 10/24/17 0523 Objective Remarks GENERAL: Alert, oriented 3, NAD. SKIN: Warm and dry. HEAD: Normocephalic. EYES: No scleral icterus. No injection or drainage. NECK: Supple, trachea midline. No JVD or lymphadenopathy. CARDIOVASCULAR: Regular rate and rhythm without murmurs, gallops, or rubs. RESPIRATORY: Breath sounds equal bilaterally. No accessory muscle use. GASTROINTESTINAL: Abdomen soft, non-tender, nondistended. MUSCULOSKELETAL: No cyanosis, or edema. BACK: Nontender without obvious deformity. No CVA tenderness. Procedures 10/23/2017 Incision and drainage of abscess with fistulotomy. A/P Assessment and Plan 32 years old -[place] Citizen male with history of HIV, syphilis, cutaneous fibromas, and multiple perianal abscess who was admitted to the hospital due to abscess in the right buttock area that started 2 days prior to this admission. He also had associated fever and chills and pain. Patient was subsequently evaluated by Dr. Pratt who performed I&D on 10/23/2017. Perianal abscess and fistula -Status post I&D. Continue pain medication. -Patient is currently on cefazolin. Will likely continue oral antibiotics once cleared by colorectal surgeon. -Probable discharge tomorrow. HIV -patient is on HAART medications. Continue upon discharge. Full code. Ambulation. Mae Hinojosa DO Oct 24, 2017 1:57 pm
[2017-10-24] MEDS ORDERED: ceFAZolin 1,000 MG/NS 100 ML IV SCH ×2 (14:00)
[2017-10-24] MEDS ORDERED: PHARMACY ORDERED LAB ONE (15:45)
[2017-10-25] MEDS ORDERED: AUGM875T3 PO ×2 (10:27→10:42)
== END 2017-10-24 17:23 | disposition home or self-care (01) | DRG 347 ==
LOC: NEPC 02:35 → NEDA 05:34 → NEDH 11:13 → HCIN 14:49
PROVIDERS: ADMIT Hospitalist; ATTEND Hospitalist
PROC: 0D9Q0ZZ Drainage of Anus, Open Approach (ICD-10-PCS; principal; 2017-10-23 17:08)
DX: K61.0 Anal abscess (principal); B20 Human immunodeficiency virus [HIV] disease; R65.10 Systemic inflammatory response syndrome (SIRS) of non-infectious origin without acute organ dysfunction; L02.31 Cutaneous abscess of buttock; L03.317 Cellulitis of buttock; Q85.00 Neurofibromatosis, unspecified; D72.825 Bandemia; Z72.0 Tobacco use; Z86.19 Personal history of other infectious and parasitic diseases; Z98.890 Other specified postprocedural states
CPT/HCPCS: 80048; 80053; 81001; 83605; 83690; 83735; 85025; 85610; 85730; 86140; 87040; 87070; 87077; 87186; 87205; 88304; J0690; J2250; J2270; J2405; J2543; J2710; J3010; J3370; J7030; J7050; J7120